=== PATIENT | male | born 1995 | race Caucasian/White ===

== ENCOUNTER 2017-02-04 22:59 | Emergency (ER) | payer OTHER ==
[~2017-02-04] VITALS: Ht 182.9 cm; Wt 122.3 kg
[~2017-02-04 22:59] MED LIST: AUGMENTIN500 MG PO; CITALOPRAM HBR20 MG PO; CLONAZEPAM0.5 MG PO; DESYREL 150 MG150 MG PO; FLONASE16 G1 BOTH NARES; FLUOXETINE HCL20 MG PO; MEDROL DOSEPAK4 MG PO; MOTRIN800 MG PO; NOHOMEMEDS; PAROXETINE HCL20 MG PO; PERCOCET 5/31 TABLET PO; TRAZODONE HCL50 MG PO; ULTRAM50 MG PO; VICODIN 5-3001 EACH PO; ZOFRAN4 MG PO
[2017-02-04 23:39] LABS: HEMATOCRIT 41.9 % (38.0-50.0); MCH 28.5 PG (29.0-34.0); MCHC 33.7 G/DL (30.0-36.0); MCV 84.8 FL (86-99); MEAN PLAT.VOLUME 9.8 uM^3 (9.0-12.4); PLATELET COUNT 289 K/uL (156-360); RBC DIS.WIDTH-CV 12.8 % (11.8-14.6); RBC DIS.WIDTH-SD 39.3 % (39-53); RED BLOOD COUNT 4.94 M/uL (4.00-5.50); WHITE BLOOD COUNT 7.8 K/uL (4.1-10.2)
[2017-02-04 23:52] LABS: CHLORIDE 105 mEq/L (99-109); POTASSIUM 3.7 mEq/L (3.7-5.4); SODIUM 138 mEq/L (136-147)
[2017-02-04 23:55] LABS: GLUCOSE 131 mg/dL (70-99)
[2017-02-04 23:56] LABS: ANION GAP 10 MEQ/L (2-14)
[2017-02-04 23:57] LABS: TOTAL BILIRUBIN 0.4 mg/dL (0.0-1.0)
[2017-02-04 23:58] LABS: ALKALINE PHOSPHATASE 95 IU/L (3-129); GFR ESTIMATE (CALCULATED) > 59 mL/min/
[2017-02-04 23:59] LABS: UREA NITROGEN (BUN) 15 mg/dL (9-23)
[2017-02-05 00:02] LABS: LIPASE 19 U/L (1.0-51.0)
[2017-02-05 00:24] LABS: ADD MIUA? NO; BILIRUBIN NEGATIVE; BLOOD NEGATIVE; COLOR STRAW ((YELLOW)); GLUCOSE (STRIP) NEGATIVE; KETONES NEGATIVE; LEUKOCYTES NEGATIVE; NITRITE NEGATIVE; PROTEIN (STRIP) NEGATIVE; SPECIFIC GRAVITY 1.008 (1.000-1.030); UCUL ADDED? NO; UROBILINOGEN 0.2 MG/DL (0.2-1.0)
[2017-02-05] MEDS ORDERED: ZOFRAN ODT4 MG PO (01:52)
[2017-02-05] MEDS ORDERED: BENTYL20 MG PO (01:52)
[2017-02-05] MEDS ORDERED: PERCOCET 5/31 TABLET PO (01:52)
[2017-02-05 02:13] VITALS: BP 164/81
== END 2017-02-05 02:16 | disposition home or self-care (01) ==
LOC: EME 22:59
PROVIDERS: Physician Assistant
DX: R10.31 Right lower quadrant pain (principal); R11.0 Nausea
CPT/HCPCS: 74177; 80053; 81003; 83690; 85027; 99281; 99285; J2270; J2405; J3010; J7030

== ENCOUNTER 2017-02-27 02:53 | Emergency (ER) | payer OTHER ==
[~2017-02-27] VITALS: Ht 182.9 cm; Wt 122.2 kg
[~2017-02-27 02:53] MED LIST changes: +BENTYL20 MG PO; +ZOFRAN ODT4 MG PO
[2017-02-27] MEDS ORDERED: ERYTHROMYCIN O3.5 GM RIGHT EYE (03:52)
[2017-02-27] MEDS ORDERED: TOBREX5 ML RIGHT EYE (03:52)
[2017-02-27 04:02] VITALS: BP 132/85
== END 2017-02-27 04:04 | disposition home or self-care (01) ==
LOC: EME 02:53
DX: S05.01XA Injury of conjunctiva and corneal abrasion without foreign body, right eye, initial encounter (principal); W20.8XXA Other cause of strike by thrown, projected or falling object, initial encounter; Y92.239 Unspecified place in hospital as the place of occurrence of the external cause; Y99.0 Civilian activity done for income or pay
CPT/HCPCS: 99281; 99283